=== PATIENT | female | born 1930 | race Caucasian/White ===

== ENCOUNTER 2016-11-03 14:40 | Emergency (ER) | payer MEDICARE, OTHER ==
[~2016-11-03] VITALS: Ht 170.2 cm; Wt 61.0 kg
[2016-11-03 14:49] VITALS: BP 115/63; PULSE 60; RESP 16; TEMP 97.8; O2SAT 98
--- NOTE | 2016-11-03 15:36 | PD ---
HPI Chief Complaint: Injury Time Seen by Provider: 15:33 Travel History International Travel<30 days: No Contact w/Intl Traveler<30days: No Traveled to known affect area: No History of Present Illness HPI 85-year-old female presents to the emergency room for evaluation of left fourth toe pain and swelling for the past 3 days. Patient was walking in shoes when she jammed her toe against an object on the ground. She reports continued pain since then. Pain is worsened with range of motion and palpation. Some radiation to the fifth toe. She has had no difficulty ambulating. Patient has not taken anything for pain. Denies paresthesias. She noticed a small blood blister develop yesterday. Patient is concerned that the blister pop and cause an infection. She has no history of diabetes. [facility] Past Medical History Neurologic: Yes Tetanus Vaccination: > 5 Years Influenza Vaccination: Yes Past Surgical History Tonsillectomy: Yes Social History Alcohol Use: Yes Tobacco Use: No Substance Use: No Allergies-Medications (Allergen,Severity, Reaction): Coded Allergies: No Known Allergies (Unverified , 11/03/16) Reported Meds & Prescriptions Reported Meds & Active Scripts Active No Active Prescriptions or Reported Medications Review of Systems Except as stated in HPI: all other systems reviewed are Neg Physical Exam Narrative GENERAL: Well-nourished, well-developed female in no acute distress. Afebrile. Ambulatory. SKIN: Warm and dry. There is a small blood blister on the fourth medial, dorsal toe. HEAD: Normocephalic. EYES: No scleral icterus. No injection or drainage. NECK: Supple, trachea midline. No JVD or lymphadenopathy. EXTREMITY: Tenderness to palpation of the left fourth toe. Full range of motion in all joints. No significant edema. Less than 2 second capillary refill distally. Data Data Last Documented VS Vital Signs Date Time Temp Pulse Resp B/P Pulse Ox O2 Delivery O2 Flow Rate FiO2 11/03/16 14:49 97.8 60 16 115/63 98 Orders Toe (Min 2vws) (11/03/16 ) [facility] Medical Decision Making Medical Screen Exam Complete: Yes Emergency Medical Condition: Yes Medical Record Reviewed: Yes Differential Diagnosis Contusion versus abrasion versus fracture versus sprain versus strain Narrative Course 85-year-old female presents to the emergency room for evaluation of left fourth toe pain, swelling, and bruising for the past 3-4 days. Patient stubbed her toe on an object that was lying on the ground. Since then she has had consistent pain. She is concerned that the small blister that developed is going to pop and cause infection. Patient has no history of diabetes. Physical exam reveals an intact 2 mm blister with surrounding ecchymosis. Less than 2 second capillary refill distally. No edema. Tenderness to palpation of the PIP joint. No obvious deformity. X-ray is negative. Patient given postop shoe and wound care instructions if the blister pops. Told to follow-up with a PCP or return for worsening symptoms. She understands and agrees with plan. Diagnosis Primary Impression: Toe contusion Qualified Code: S90.122A - Contusion of lesser toe of left foot without damage to nail, initial encounter Referrals: Primary Care Physician Patient Instructions: Contusion in Adults (ED), General Instructions Additional Instructions: Rest and drink plenty of fluids. Take Tylenol as directed, as needed for pain. If blister opens, clean it thoroughly with soap and water and apply triple antibiotic ointment daily until healed. Apply ice to the affected area for 20 minutes at a time, as needed for pain and swelling. Follow-up with a primary care physician. Return to the emergency room for worsening symptoms. Scripts No Active Prescriptions or Reported Meds Disposition: 01 DISCHARGE HOME Condition: Stable Izzy Alvarado Nov 03, 2016 15:36
--- NOTE | 2016-11-03 17:11 | RADHPO ---
EXAM DATE/TIME: 11/03/2016 15:28 [facility] COMPARISON: No previous studies available for comparison. INDICATIONS : Left foot, fourth digit pain. Patient stubbed toe four days ago. MEDICAL HISTORY : None. SURGICAL HISTORY : None. ENCOUNTER: Initial ACUITY: 4 - 6 days PAIN SCORE: 6/10 LOCATION: Left foot, fourth digit. FINDINGS: 3 views of the left foot fourth digit demonstrate no fracture or dislocation. Mineralization is mildl y decreased. There is soft tissue swelling of the fourth digit. No radiopaque foreign body is identif ied. CONCLUSION: No fracture is identified. Taurus Vidal MD on November 03, 2016 at 17:09 Board Certified Radiologist. This report was verified electronically.
== END 2016-11-03 17:37 | disposition home or self-care (01) ==
LOC: PHEFT 14:40
DX: S90.122A Contusion of left lesser toe(s) without damage to nail, initial encounter (principal); W22.8XXA Striking against or struck by other objects, initial encounter; Y93.01 Activity, walking, marching and hiking
CPT/HCPCS: 73660; 99283